=== PATIENT | male | born 1965 | race Caucasian/White ===

== ENCOUNTER 2023-03-16 08:25 | Day surgery (SDC) | payer BC ==
[~2023-03-16] VITALS: Ht 177.8 cm; Wt 92.3 kg
[~2023-03-16 08:25] MED LIST: ATOR40TA PO; Cialis5 MG; LEVITRA PO; ONE-A-DAY MEN'1 EAC2 PO; Prinivil10 MG PO; Viagra100 MG PO
[2023-03-16 10:20] VITALS: BP 106/75
== END 2023-03-16 10:22 | disposition home or self-care (01) ==
LOC: ORSCSDS 08:25
PROVIDERS: Surgery
PROC: 0DBN8ZX Excision of Sigmoid Colon, Via Natural or Artificial Opening Endoscopic, Diagnostic (ICD-10-PCS; principal; 2023-03-16 09:45)
PROC: 0DBL8ZX Excision of Transverse Colon, Via Natural or Artificial Opening Endoscopic, Diagnostic (ICD-10-PCS; principal; 2023-03-16 09:45)
DX: Z12.11 Encounter for screening for malignant neoplasm of colon (principal); Z86.010 Personal history of colon polyps; D12.3 Benign neoplasm of transverse colon; K63.5 Polyp of colon; I10 Essential (primary) hypertension; E78.5 Hyperlipidemia, unspecified; Z87.891 Personal history of nicotine dependence; Z79.899 Other long term (current) drug therapy
CPT/HCPCS: 88305; J2704; J7120